=== PATIENT | female | born 1950 | race Asian ===

== ENCOUNTER → 2017-07-25 | Outpatient (CLI) | payer MEDICARE | END | disposition home or self-care (01) | LOC: RADPV 10:47 | PROVIDERS: ATTEND Family Medicine | DX: M19.011 Primary osteoarthritis, right shoulder (principal); S49.91XA Unspecified injury of right shoulder and upper arm, initial encounter; X58.XXXA Exposure to other specified factors, initial encounter; Y93.89 Activity, other specified; Y92.89 Other specified places as the place of occurrence of the external cause; Y99.8 Other external cause status ==

== ENCOUNTER → 2017-08-11 | Outpatient (CLI) | payer MEDICARE | END | disposition home or self-care (01) | LOC: RADPV 12:03 | PROVIDERS: ATTEND Family Medicine | DX: M17.12 Unilateral primary osteoarthritis, left knee (principal) ==

== ENCOUNTER 2017-12-17 17:14 | Emergency (ER) | payer MEDICARE ==
[~2017-12-17] VITALS: Ht 167.6 cm; Wt 77.3 kg
[2017-12-17] MEDS ORDERED: TRAM50TA4 PO (17:22)
[2017-12-17] MEDS ORDERED: ATOR40TA28 PO (17:22)
[2017-12-17] MEDS ORDERED: IBUP100T54 PO (17:22)
[2017-12-17] MEDS ORDERED: LOSA25TA21 PO (17:22)
[2017-12-17] MEDS ORDERED: KETOROLAC TROMETHAMINE 30 MG/ML VIAL IM ONE (21:15)
[2017-12-17] MEDS ORDERED: HYDROCODONE/ACETAMINOPHEN 5-325 MG TABLET PO ONE (21:15)
[2017-12-17] MEDS ORDERED: CYCLOBENZAPRINE HCL 10 MG TABLET PO ONE (21:15)
[2017-12-17] MEDS ORDERED: TraMADol HCL 50 MG TABLET PO ONE (21:30)
[2017-12-17] MEDS ORDERED: LORazepam 2 MG/ML VIAL IM ONE (21:30)
[2017-12-17] MEDS ORDERED: KETOROLAC TROMETHAMINE 60 MG/2 ML VIAL IM ONE (21:30)
[2017-12-17] MEDS ORDERED: LORazepam 1 MG TABLET PO ONE (21:30)
[2017-12-17 23:03] VITALS: BP 117/82
== END 2017-12-17 23:28 | disposition home or self-care (01) ==
LOC: EMS 17:17
DX: S20.211A Contusion of right front wall of thorax, initial encounter (principal); M25.561 Pain in right knee; M79.601 Pain in right arm; M79.602 Pain in left arm; E78.00 Pure hypercholesterolemia, unspecified; I10 Essential (primary) hypertension; W01.0XXA Fall on same level from slipping, tripping and stumbling without subsequent striking against object, initial encounter; Y93.89 Activity, other specified; Y92.89 Other specified places as the place of occurrence of the external cause; Y99.8 Other external cause status
CPT/HCPCS: 71101; 99284; J1885; J2060

== ENCOUNTER 2023-02-14 14:08 | Emergency (ER) | payer MEDICARE ==
[~2023-02-14] VITALS: Ht 160 cm; Wt 61.4 kg
[~2023-02-14 14:08] MED LIST: ATOR40TA28 PO; IBUP100T54 PO; LOSA-381 PO; TRAM-559 PO
[2023-02-14 14:10] VITALS: TEMP 97.9
[2023-02-14 15:29] LABS: BASOPHILS % (AUTO) 0.8 % (0.0-2.0); EOSINOPHILS % (AUTO) 5.1 % (1.0-6.0); HEMATOCRIT 39.6 % (36-46); HEMOGLOBIN 12.8 g/dL (12.0-16.0); LYMPHOCYTES # (AUTO) 1.5 K/uL (1.0-4.8); LYMPHOCYTES % (AUTO) 24.7 % (22.0-44.0); MEAN CORPUSCULAR HGB CONC 32.5 G/dL (31.0-37.0); MEAN CORPUSCULAR VOLUME 93 fL (80-100); MONOCYTES # (AUTO) 0.5 K/uL (0.1-1.0); NEUTROPHILS # (AUTO) 3.7 K/uL (1.8-7.7); NEUTROPHILS % (AUTO) 61.4 % (40.0-70.0); PLATELET COUNT (AUTO) 277 K/uL (150-450); RED BLOOD CELL COUNT(AUTO) 4.27 MIL/uL (4.00-5.20); RED CELL DISTRIBUTION WIDTH 14.1 % (11.5-14.5)
[2023-02-14 15:36] LABS: ANION GAP 10 mmol/L (8-16); CALCIUM, TOTAL 9.4 mg/dL (8.8-10.5); CARBON DIOXIDE 26 mmol/L (22-29); CHLORIDE 100 mmol/L (98-107); CREATININE 0.73 mg/dL (0.60-1.30); GLOMERULAR FILTR. RATE CALC > 60 mL/min (>60); GLUCOSE,RANDOM 96 mg/dL (70-110); POTASSIUM 3.7 mmol/L (3.5-5.1); SODIUM SERUM 136 mmol/L (136-145); UREA NITROGEN, BLOOD 28 mg/dL (7-18)
[2023-02-14 15:41] LABS: ALANINE AMINOTRANSFERASE 27 U/L (12-78); ALBUMIN 3.5 g/dL (3.4-5.0); ALKALINE PHOSPHATASE 67 U/L (46-116); ASPARTATE AMINOTRANSFERASE 27 U/L (15-37); BILIRUBIN,TOTAL 0.4 mg/dL (0.1-1.0); TOTAL PROTEIN, SERUM 7.6 g/dL (6.4-8.2)
[2023-02-14 15:45] LABS: TROPONIN I-HIGH SENSITIVITY 8 ng/L (<51)
[2023-02-14 18:06] VITALS: BP 162/89; PULSE 88; RESP 16
== END 2023-02-14 22:43 | disposition home or self-care (01) ==
LOC: EMS 14:14
DX: S20.211A Contusion of right front wall of thorax, initial encounter (principal); E78.00 Pure hypercholesterolemia, unspecified; I10 Essential (primary) hypertension; Z98.62 Peripheral vascular angioplasty status; W01.0XXA Fall on same level from slipping, tripping and stumbling without subsequent striking against object, initial encounter; Y93.89 Activity, other specified; Y92.481 Parking lot as the place of occurrence of the external cause; Y99.8 Other external cause status
CPT/HCPCS: 71101; 80053; 84484; 85025; 99284

== ENCOUNTER 2023-11-09 18:28 | Emergency (ER) | payer MEDICARE ==
[~2023-11-09] VITALS: Ht 167.6 cm; Wt 86.4 kg
[~2023-11-09 18:28] MED LIST changes: +AMOX1TAB16 PO; -ATOR40TA28 PO; +ATOR40TA71 PO; +EZET10TA57 PO; +FURO-152 PO; +GLIP5TAB15 PO; -IBUP100T54 PO; -LOSA-381 PO; +LOSA100T59 PO; +PIOG30TA70 PO; -TRAM-559 PO
[2023-11-09 18:42] VITALS: TEMP 97.8
[2023-11-09] MEDS: ACETAMINOPHEN 325 MG TABLET PO ONE (23:00)
[2023-11-10 00:36] LABS: APPEARANCE,URINE CLEAR (CLEAR); BILIRUBIN,URINE NEGATIVE (NEGATIVE); COLOR,URINE LIGHT YELLOW (YELLOW); GLUCOSE, URINE (UA) NEGATIVE (NEGATIVE); KETONES,URINE NEGATIVE (NEGATIVE); LEUKOCYTE ESTERASE ,URINE MODERATE (NEGATIVE); NITRATE,URINE NEGATIVE (NEGATIVE); OCCULT BLOOD,URINE NEGATIVE (NEGATIVE); PH,URINE 6.5 (5.0-8.0); PROTEIN,URINE NEGATIVE (NEGATIVE); SPECIFIC GRAVITIY, URINE 1.015 (1.003-1.030); UROBILINOGEN,URINE <=1.0 mg/dL (<=1.0)
[2023-11-10] MEDS ORDERED: CEPH-558 PO (00:49)
[2023-11-10 00:56] LABS: BACTERIA,URINE Few /HPF (None Seen); RBC,URINE None Seen /HPF (0-2); SQUAMOUS EPITHELIAL CELL,UR Few /LPF (None Seen)
[2023-11-10 01:20] VITALS: BP 148/82; PULSE 77; RESP 18
== END 2023-11-10 01:22 | disposition home or self-care (01) ==
LOC: EMS 18:28
DX: S09.90XA Unspecified injury of head, initial encounter (principal); N39.0 Urinary tract infection, site not specified; E78.00 Pure hypercholesterolemia, unspecified; I10 Essential (primary) hypertension; Z88.6 Allergy status to analgesic agent; W01.0XXA Fall on same level from slipping, tripping and stumbling without subsequent striking against object, initial encounter; Y93.89 Activity, other specified; Y92.89 Other specified places as the place of occurrence of the external cause; Y99.8 Other external cause status
CPT/HCPCS: 70450; 81001; 87086; 87186; 93005; 99284